=== PATIENT | male | born 1985 | race Hispanic/Latino ===

== ENCOUNTER 2018-03-31 17:46 | Emergency (ER) | payer OTHER | END 2018-03-31 18:11 | disposition home or self-care (01) | LOC: EEVIPCON 17:46 → EDH 17:46 | DX: S80.212A Abrasion, left knee, initial encounter (principal); H57.12 Ocular pain, left eye; F41.9 Anxiety disorder, unspecified; F32.9 Major depressive disorder, single episode, unspecified; Z72.0 Tobacco use; Y04.0XXA Assault by unarmed brawl or fight, initial encounter; Y93.89 Activity, other specified; Y92.89 Other specified places as the place of occurrence of the external cause; Y99.8 Other external cause status ==